=== PATIENT | female | born 1995 | race Caucasian/White ===

== ENCOUNTER 2023-07-21 07:00 | Day surgery (SDC) | payer OTHER ==
[~2023-07-21] VITALS: Ht 152.4 cm; Wt 67.1 kg
[2023-07-21 07:49] LABS: HCG,QUAL RESULT NEGATIVE (NEGATIVE)
[2023-07-21] MEDS ORDERED: MEPERIDINE 100 MG INJ. 100 MG/ML VIAL ONE (08:05)
[2023-07-21] MEDS ORDERED: MIDAZOLAM HCL 5 MG/5 ML VIAL ONE ×2 (08:05→09:45)
[2023-07-21] MEDS ORDERED: SIMETHICONE 40 MG/0.6 ML ML ONE (09:25)
[2023-07-21] MEDS ORDERED: DIPHENHYDRAMINE INJ 50 MG/ML VIAL ONE (09:30)
[2023-07-21] MEDS ORDERED: ONDANSETRON HCL 4 MG/2 ML VIAL ONE (09:31)
[2023-07-21 14:48] VITALS: O2SAT 97
[2023-07-21 15:48] VITALS: BP_SYST 126; PULSE 96; RESP 18
== END 2023-07-21 11:17 | disposition home or self-care (01) ==
LOC: SDS 07:00 → SMU 07:01 → SDS 11:17
PROVIDERS: ATTEND Internal Medicine Gastroenterology
DX: R19.7 Diarrhea, unspecified (principal); K29.50 Unspecified chronic gastritis without bleeding; Z90.89 Acquired absence of other organs; Z79.899 Other long term (current) drug therapy
CPT/HCPCS: 45380; 43239; 87081; 84703; 36415; 88305; 88312; 88313; 99153; 99152; G0378; J1200; J2250; J2405; J2175